=== PATIENT | male | born 2000 | race Caucasian/White ===

== ENCOUNTER 2023-01-16 13:29 | Outpatient (CLI) | payer BC, SELFPAY | END 2023-01-16 13:30 | disposition home or self-care (01) | PROVIDERS: PCP Family Medicine; Visit Provider Family Medicine | DX: Z00.00 Encounter for general adult medical examination without abnormal findings (principal); B27.90 Infectious mononucleosis, unspecified without complication; Z13.6 Encounter for screening for cardiovascular disorders | CPT/HCPCS: 80061; 86480 ==